=== PATIENT | female | born 1975 | race Caucasian/White ===

== ENCOUNTER 2016-12-22 20:10 | Emergency (ER) | payer SELFPAY ==
--- NOTE | 2016-12-23 06:58 | ER ---
ADMIT: 12/22/2016 RM/LOC: ER [facility] MR#: [id number] [id number] [id number] [place] [address] Emergency Room Report SEX: F AGE: 41 : 1975 DATE: 12/22/2016 The patient is a 41-year-old Korean-speaking female, complaining of intermittent right upper quadrant abdominal pain associated with nausea and vomiting today, multiple bowel movements today. Denies any exacerbating or relieving maneuvers. No prior history of small bowel obstruction, only abdominal surgery has been. x4. Exam is remarkable for nontoxic, afebrile, morbidly obese female. Tender right upper quadrant, epigastrium, bowel sounds active. CT shows possible early small bowel obstruction. Otherwise unremarkable. Normal CBC. Lactic elevated at 2.4. Glucose 133. CRP 2.83. Normal lipase. Negative troponin and UA. EKG showed sinus rhythm with low voltage. The patient was given oral challenge, tolerated well after receiving Zofran, Toradol, Dilaudid, and Protonix. Home with Zofran 8 mg ODT, first dose at discharge and t.i.d. p.r.n. #30. Low-fat, low-protein diet. Outpatient ultrasound. Follow up Dr. Magana for further imaging and possible referrals. Ashwin Singh MD/ [place] JOB #: [id number] CC: Ashwin Singh MD, Attending Physician Vania Magana MD, Family Physician
== END 2016-12-22 23:10 | disposition home or self-care (01) ==
LOC: ER 20:10
DX: K80.50 Calculus of bile duct without cholangitis or cholecystitis without obstruction (principal); E11.9 Type 2 diabetes mellitus without complications; Z79.899 Other long term (current) drug therapy